=== PATIENT | male | born 1985 | race Caucasian/White ===

== ENCOUNTER 2018-06-10 21:45 | Emergency (ER) | payer OTHER ==
[~2018-06-10] VITALS: Ht 182.9 cm; Wt 115.7 kg
[2018-06-10] MEDS ORDERED: MEDROLDOSEPACK PO (22:18)
[2018-06-10] MEDS ORDERED: ULTRAM 50MG TAB50 MG PO (22:18)
[2018-06-10] MEDS ORDERED: AMOXICILLIN500 M1 PO (22:18)
[2018-06-10 22:30] VITALS: BP 124/88
== END 2018-06-10 22:31 | disposition home or self-care (01) ==
LOC: M.ERS 21:45
DX: H66.91 Otitis media, unspecified, right ear (principal); F17.210 Nicotine dependence, cigarettes, uncomplicated